=== PATIENT | male | born 1995 | race American Indian/Alaskan Native ===

== ENCOUNTER 2018-08-25 13:51 | Emergency (ER) | payer SELFPAY ==
[2018-08-25 14:00] VITALS: BP 186/100
--- NOTE | 2018-08-25 16:46 | Emergency Department Report ---
ED Neuro Deficit HPI - General Chief Complaint: Neuro Symptoms/Deficit Stated Complaint: (R) SIDE OF FACE IS NUMB Time Seen by Provider: 08/25/18 16:42 Source: patient Mode of arrival: Ambulatory Limitations: No Limitations - History of Present Illness Initial Comments: Patient reports right facial numbness, unable to lift right eyebrow or smile on the right side of the face. Onset/Timin -: Gradual, days(s) Time: 07:00 Last Observed Normal: 07:00 Location: right face Presenting Symptoms: Present: Weak/Paralyzed One Side (right facial). Absent: Sudden, Severe Headache, Blurred/Loss of Vision, Facial Droop/Numbness, Unable to Speak Clearly, Altered Mental Status History of same: No Place: home Severity: severe Quality: numb, tingling, constant Improves With: none Worsens With: none On Anticoagulants: No Context: gradual onset Associated Symptoms: denies other symptoms. denies: confusion, chest pain, cough, diaphoresis, fever/chills, headaches, loss of appetite, malise, nausea/ vomiting, vertigo, seizures, shortness of breath, syncope, weakness Treatments Prior to Arrival: none - Related Data Home Medications: Previous Rx's Medication Instructions Recorded Last Taken Type Glycerin/Propylene Glycol 15 ml OP HS #1 drops 08/25/18 Unknown Rx [Artificial Tears Drops] Valacyclovir HCl [Valtrex] 1,000 mg PO TID #21 tablet 08/25/18 Unknown Rx methylPREDNISolone [Medrol] 4 mg PO QAM #1 tab.ds.pk 08/25/18 Unknown Rx Allergies/Adverse Reactions: Allergies Allergy/AdvReac Type Severity Reaction Status Date / Time No Known Allergies Allergy Unverified 08/25/18 14:00 ED Review of Systems ROS: Stated complaint: (R) SIDE OF FACE IS NUMB Other details as noted in HPI Constitutional: denies: chills, fever Eyes: denies: eye pain, eye discharge, vision change ENT: denies: ear pain, throat pain Respiratory: denies: cough, orthopnea, shortness of breath, SOB with exertion, SOB at rest, stridor, wheezing Cardiovascular: denies: chest pain, palpitations, dyspnea on exertion, orthopnea Endocrine: no symptoms reported Gastrointestinal: denies: abdominal pain, nausea, vomiting, diarrhea Genitourinary: denies: urgency, dysuria Musculoskeletal: denies: back pain, joint swelling, arthralgia Skin: denies: rash, lesions Neurological: numbness (right facial), paresthesias (right facial). denies: headache, weakness, confusion, abnormal gait, vertigo Psychiatric: denies: anxiety, depression Hematological/Lymphatic: denies: easy bleeding, easy bruising ED Past Medical Hx - Past Medical History Previous Medical History?: No - Surgical History Past Surgical History?: No - Social History Smoking Status: Former Smoker Substance Use Type: Alcohol, Marijuana - Medications Home Medications: Home Medications Medication Instructions Recorded Confirmed Last Taken Type Glycerin/Propylene Glycol 15 ml OP HS #1 drops 08/25/18 Unknown Rx [Artificial Tears Drops] Valacyclovir HCl [Valtrex] 1,000 mg PO TID #21 tablet 08/25/18 Unknown Rx methylPREDNISolone [Medrol] 4 mg PO QAM #1 tab.ds.pk 08/25/18 Unknown Rx ED Neuro Physical Exam - General Limitations: No Limitations General appearance: alert, in no apparent distress - Head Head exam: Present: atraumatic, normocephalic - Eye Eye exam: Present: normal appearance, PERRL, EOMI. Absent: scleral icterus, conjunctival injection, nystagmus, periorbital swelling, periorbital tenderness Pupils: Present: normal accommodation. Absent: irregular, unequal, miosis, mydriatic - Expanded Eye Exam Expanded Eyelids: Normal Inspection: Right Pupils: Regular, Round: Bilateral Sclera/Conjunctival: Normal Inspection: Bilateral - ENT ENT exam: Present: normal exam, normal orophraynx, mucous membranes moist, TM's normal bilaterally, normal external ear exam. Absent: mucous membranes dry - Expanded ENT Exam Expanded Mouth exam: Present: normal external inspection, tongue normal. Absent: drooling, trismus, muffled voice, tongue elevation, laceration Teeth exam: Present: normal inspection. Absent: dental caries, fractured tooth #, dental tenderness #, gingival enlargement Throat exam: Positive: normal inspection. Negative: tonsillar erythema, tonsillomegaly, tonsillar exudate, R peritonsillar mass, L peritonsillar mass - Neck Neck exam: Present: normal inspection, tenderness, full ROM. Absent: meningismus, lymphadenopathy, thyromegaly - Respiratory Respiratory exam: Present: normal lung sounds bilaterally. Absent: respiratory distress, wheezes, rales, rhonchi, stridor, chest wall tenderness, accessory muscle use, decreased breath sounds, prolonged expiratory - Cardiovascular Cardiovascular Exam: Present: regular rate, normal rhythm, normal heart sounds. Absent: bradycardia, tachycardia, irregular rhythm, systolic murmur, diastolic murmur, rubs, gallop - Extremities Exam Extremities exam: Present: normal inspection, full ROM, normal capillary refill. Absent: tenderness, pedal edema, joint swelling - Back Exam Back exam: Present: normal inspection, full ROM. Absent: tenderness, CVA tenderness (R), CVA tenderness (L), muscle spasm, paraspinal tenderness, vertebral tenderness - Neurological Exam Neurological exam: Present: alert, oriented X3, CN II-XII intact, normal gait, reflexes normal. Absent: motor sensory deficit - NIHSS Assessment Interval: 24 hours post onset of symptoms +-20 minutes 1a. Level of Consciousness: alert/keenly responsive 1b. LOC Questions: answers both correctly 1c. LOC Commands: performs tasks correctly 2. Best Gaze: normal (right) 3. Visual: no visual loss 4. Facial Palsy: unilateral complete paralysis (right) 5b. Motor Arm Right: no drift 5a. Motor Arm Left: no drift 6a. Motor Leg Left: no drift 6b. Motor Leg Right: no drift 7. Limb Ataxia: absent 8. Sensory: mild/moderate sensory loss (right facial) 9. Best Language: no aphasia 10. Dysarthria: normal 11. Extinction/Inattention: no abnormality Total Score: 4 Stroke Severity: Minor Stroke - Psychiatric Psychiatric exam: Present: normal affect, normal mood - Skin Skin exam: Present: warm, dry, intact, normal color. Absent: rash ED Course Vital Signs 08/25/18 13:57 Temperature 98 F Pulse Rate 78 Respiratory 18 Rate Blood Pressure 186/100 O2 Sat by Pulse 99 Oximetry - Lab Data Vital Signs 08/25/18 13:57 Temperature 98 F Pulse Rate 78 Respiratory 18 Rate Blood Pressure 186/100 O2 Sat by Pulse 99 Oximetry - Medical Decision Making During the course of ED, all other systems are unremarkable except for documentation in HPI. Otherwise normal neurological exam, except for right facial numbness and decrease muscle tone (cranial VII). Patient was sent home with prescriptions for Lacri-lube, prednisone and Valtrex, instructed to protect his right eye at night by applying soft tape to the eyelid to prevent dryness, and return back to the ED for worsening symptoms or concerns. He verbalized understanding - Differential Diagnosis Mayer's Palsy, Stroke, Zoster, Infectious Mononucleosis - Core Measures AMI Core Measures Followed: No Measure Exclusions: not indicated - Thrombolytic Inclusion/Exclusion Thrombolytic Exclusion Criteria: Symptom Onset > 3 Hours Thrombolytic Inclusion Criteria: Age 18 or Older Thrombolytic Contraindications: Rapidily Improving s/s Critical Care Time: No Critical care attestation.: If time is entered above; I have spent that time in minutes in the direct care of this critically ill patient, excluding procedure time. ED Disposition Clinical Impression: Mayer's palsy Disposition: DC-01 TO HOME OR SELFCARE Is pt being admited?: No Does the pt Need Aspirin: No Condition: Stable Instructions: Mayer Palsy (ED) Additional Instructions: Take medication as directed. Use artificial tear eye drops and place tape on your right eyelids at night to prevent dryness. Follow up with PCP this week Prescriptions: Glycerin/Propylene Glycol [Artificial Tears Drops] 15 ml OP HS #1 drops methylPREDNISolone [Medrol] 4 mg PO QAM #1 tab.ds.pk Valacyclovir HCl [Valtrex] 1,000 mg PO TID #21 tablet Referrals: GIGI HEATON MD [Staff Physician] - 3-5 Days SOCORRO WARREN MD [Staff Physician] - 3-5 Days
== END 2018-08-25 17:12 | disposition home or self-care (01) ==
LOC: ED 13:51
DX: G51.0 Bell's palsy (principal); F12.10 Cannabis abuse, uncomplicated; Z87.891 Personal history of nicotine dependence
CPT/HCPCS: 99282

== ENCOUNTER 2019-05-07 11:01 | Emergency (ER) | payer OTHER ==
[2019-05-07 11:16] VITALS: BP 131/81
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
[2019-05-07] MEDS ORDERED: TYLENOL ONE (11:28)
--- NOTE | 2019-05-07 12:34 | Ultrasound Report ---
ULTRASOUND SCROTUM INDICATION: testicle pain.. COMPARISON None available. FINDINGS -- RIGHT TESTIS: Size: 4.1 x 2.4 x 2.9 cm. Echotexture: Normal. Color Doppler Flow: Normal. Lesions: None. EPIDIDYMIS: Size: Normal. Echotexture: Normal. Color Doppler Flow: Normal. Lesions: None. Hydrocele: None. Varicocele: None. Additional Findings: None. FINDINGS -- LEFT TESTIS: Size: 4.8 x 2.6 x 3.5 cm. Echotexture: Normal. Color Doppler Flow: Normal. Lesions: None. EPIDIDYMIS: Size: Normal. Echotexture: Normal. Color Doppler Flow: Increased Lesions: None. Hydrocele: None. Varicocele: None. Additional Findings: None. IMPRESSION: 1. Left-sided epididymitis. No testicular torsion. Signer Name: Flavio Resendez MD Signed: 05/07/2019 12:30 PM Workstation Name: [id number]
[2019-05-07 12:54] LABS: Bacteria,Urine 1+ /HPF (Negative); Bilirubin,Urine NEG (Negative); Blood,Urine SM (Negative); Color,Urine Yellow (Yellow); Mucus,Urine 1+ /HPF; Protein,Urine <15 mg/dL mg/dL (Negative); Urobilinogen,Urine < 2.0 mg/dL (<2.0)
[2019-05-07 12:55] LABS: WBC,Urine > 182.0 /HPF (0.0-6.0)
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
[2019-05-07] MEDS ORDERED: XYLOCAINE 1% MPF 5 mL INFILTRATI ONE (13:33)
[2019-05-07] MEDS ORDERED: ROCEPHIN IM ONE (13:33)
[2019-05-07] MEDS ORDERED: TYLENOL PO ONE (15:26)
== END 2019-05-07 14:01 | disposition home or self-care (01) ==
LOC: ED 11:01
DX: N45.1 Epididymitis (principal)
CPT/HCPCS: 81001; 87086; 93975; 96372; 99284; J0696